=== PATIENT | female | born 1965 | race Caucasian/White ===

== ENCOUNTER → 2017-11-24 | Outpatient (CLI) | payer BC ==
[~2017-11-24] MED LIST: HYDACE5 PO
[2017-11-24 14:29] LABS: Adenovirus F 40/41 Not Detected (NOT DETECT); Astrovirus Not Detected (NOT DETECT); Campylobacter Sp Not Detected (NOT DETECT); Cryptosporidium Not Detected (NOT DETECT); Cyclospora Cayetanensis Not Detected (NOT DETECT); E. Coli O157 Not Detected (NOT DETECT); Entamoeba Histolytica Not Detected (NOT DETECT); Enteroaggregative E. coli-EAEC Not Detected (NOT DETECT); Enteropathogenic E. coli-EPEC Not Detected (NOT DETECT); Enterotoxigenic E. coli-ETEC Not Detected (NOT DETECT); Giardia Lamblia Not Detected (NOT DETECT); Norovirus GI/GII Not Detected (NOT DETECT); Plesiomonas Shigelloides Not Detected (NOT DETECT); Rotavirus A Not Detected (NOT DETECT); Salmonella Sp Not Detected (NOT DETECT); Sapovirus Not Detected (NOT DETECT); Shiga Toxin-prod E. coli-STEC Not Detected (NOT DETECT); Shigella/Enteroin E. coli-EIEC Not Detected (NOT DETECT); Vibrio Cholerae Not Detected (NOT DETECT); Vibrio Sp Not Detected (NOT DETECT); Yersinia Enterocolitica Not Detected (NOT DETECT)
== END ==
LOC: LAB 14:27
PROVIDERS: Nurse Practitioner Family
DX: R19.7 Diarrhea, unspecified (principal)
CPT/HCPCS: 87507

== ENCOUNTER → 2017-12-21 | Outpatient (CLI) | payer BC | END | disposition home or self-care (01) | LOC: LAB 05:45 | DX: R19.7 Diarrhea, unspecified (principal) | CPT/HCPCS: 87493 ==

== ENCOUNTER → 2018-10-29 | Outpatient (CLI) | payer BC ==
[2018-10-29 12:17] LABS: Adenovirus F 40/41 Not Detected (NOT DETECT); Astrovirus Not Detected (NOT DETECT); Campylobacter Sp Not Detected (NOT DETECT); Cryptosporidium Not Detected (NOT DETECT); Cyclospora Cayetanensis Not Detected (NOT DETECT); E. Coli O157 Not Detected (NOT DETECT); Entamoeba Histolytica Not Detected (NOT DETECT); Enteroaggregative E. coli-EAEC Not Detected (NOT DETECT); Enteropathogenic E. coli-EPEC Not Detected (NOT DETECT); Enterotoxigenic E. coli-ETEC Not Detected (NOT DETECT); Giardia Lamblia Not Detected (NOT DETECT); Norovirus GI/GII Not Detected (NOT DETECT); Plesiomonas Shigelloides Not Detected (NOT DETECT); Rotavirus A Not Detected (NOT DETECT); Salmonella Sp Not Detected (NOT DETECT); Sapovirus Not Detected (NOT DETECT); Shiga Toxin-prod E. coli-STEC Not Detected (NOT DETECT); Shigella/Enteroin E. coli-EIEC Not Detected (NOT DETECT); Vibrio Cholerae Not Detected (NOT DETECT); Vibrio Sp Not Detected (NOT DETECT); Yersinia Enterocolitica Not Detected (NOT DETECT)
== END | disposition home or self-care (01) ==
LOC: LAB 07:10 → LAB SHORT 07:10
PROVIDERS: Nurse Practitioner Family
DX: R19.7 Diarrhea, unspecified (principal)
CPT/HCPCS: 87507

== ENCOUNTER → 2018-12-27 | Outpatient (CLI) | payer BC ==
[2018-12-29 15:07] LABS: HPV 16 Negative (Negative); HPV 18 Negative (Negative); HPV OTHER HR TYPES Negative (Negative)
== END | disposition home or self-care (01) ==
LOC: LAB 19:55 → LAB SHORT 19:55
PROVIDERS: Obstetrics & Gynecology
DX: Z01.419 Encounter for gynecological examination (general) (routine) without abnormal findings (principal)
CPT/HCPCS: 87624; G0123

== ENCOUNTER 2024-10-27 10:45 | Day surgery (SDC) | payer OTHER ==
[~2024-10-27] VITALS: Ht 167.6 cm; Wt 59.7 kg
[~2024-10-27 10:45] MED LIST changes: +EPINEPhrine HCl 1 MG/ML 1ML Amp ONE; +Lactated Ringer's 1,000 ML IV ONE; +Lidocaine HCl 2% 10 ML SDA ONE; +Ropivacaine 0.5% HCL/PF 5 MG/ML 30ML Vial ONE
[2024-10-27] MEDS ORDERED: TRI-LO-SPRINTE1 EACH PO (11:10)
[2024-10-27] MEDS ORDERED: Lactated Ringer's 1,000 ML IV ONE (12:01)
[2024-10-27] MEDS ORDERED: Midazolam HCl 1MG / ML 2ML Vial ONE (12:38)
[2024-10-27] MEDS ORDERED: FentaNYL Citrate 50 MCG/ML 2 ML Injection ONE (12:38)
[2024-10-27] MEDS ORDERED: propofoL 20 ML IV ONE (12:38)
[2024-10-27] MEDS ORDERED: Dexamethasone Sod Phos 10 MG/ML 1ML VIAL ONE (12:42)
[2024-10-27] MEDS ORDERED: Ondansetron HCl 2 MG / ML 2ML Vial ONE (12:42)
[2024-10-27] MEDS ORDERED: Ketorolac Tromethamine 30mg Vial ONE (12:43)
[2024-10-27] MEDS ORDERED: CeFAZolin Sodium 1000 mg Vial ONE (12:44)
--- NOTE | 2024-10-27 12:52 | NUR ---
10/27/24 125Allegra Weaver 30ML OF ROPIVACAINE 0.5% MIXED AND VERIFIED WITH 0.15ML OF EPI (1MG/ML) TO MAKE ROPIVACAINE 0.5% WITH EPI 1:200,000 FOR INJECTION AT THE OPSITE BY DR BRAY.
[2024-10-27 13:55] VITALS: BP 115/74
== END 2024-10-27 14:27 | disposition home or self-care (01) ==
LOC: ORSCSDS 10:45
PROVIDERS: Podiatrist Foot & Ankle Surgery
PROC: 0SGM04Z Fusion of Right Metatarsal-Phalangeal Joint with Internal Fixation Device, Open Approach (ICD-10-PCS; principal; 2024-10-27 12:00)
PROC: 0QSQ04Z Reposition Right Toe Phalanx with Internal Fixation Device, Open Approach (ICD-10-PCS; principal; 2024-10-27 12:00)
PROC: 0QSN04Z Reposition Right Metatarsal with Internal Fixation Device, Open Approach (ICD-10-PCS; principal; 2024-10-27 12:00)
DX: M20.11 Hallux valgus (acquired), right foot (principal)
CPT/HCPCS: C1713; C1769; J0171; J0690; J1100; J1885; J2003; J2250; J2405; J2704; J2795; J3010; J7120

== ENCOUNTER 2025-07-13 11:36 | Day surgery (SDC) | payer OTHER ==
[~2025-07-13] VITALS: Ht 167.6 cm; Wt 62.2 kg
[~2025-07-13 11:36] MED LIST changes: +ASCORBIC ACID500 MG PO; +CREATINE100 GM MC; -EPINEPhrine HCl 1 MG/ML 1ML Amp ONE; +LUTEIN-ZEAXANT1 EAC3 PO; -Lactated Ringer's 1,000 ML IV ONE; +MAG GLYCINATE100 MG PO; +MAGNESIUM OXID500 MG PO; -Ropivacaine 0.5% HCL/PF 5 MG/ML 30ML Vial ONE; +TRI-LO-SPRINTE1 EACH PO; +TURMERIC750 MG PO
[2025-07-13] MEDS ORDERED: CeFAZolin Sodium 2,000 MG VIAL ONE (11:49)
[2025-07-13] MEDS ORDERED: VITAMIN D5000 UNIT PO (11:56)
[2025-07-13] MEDS ORDERED: FentaNYL Citrate 50 MCG/ML 2 ML Injection ONE (12:12)
[2025-07-13] MEDS ORDERED: Midazolam HCl 1MG / ML 2ML Vial ONE (12:12)
[2025-07-13 12:41] VITALS: BP 111/75
--- NOTE | 2025-07-13 13:04 | NUR ---
07/13/25 1304 Sadie Leonard ASSUMED CARE FOR PATIENT
[2025-07-13] MEDS ORDERED: HYDROcodone 5-APAP 325 TAB ONE (13:08)
== END 2025-07-13 13:36 | disposition home or self-care (01) ==
LOC: ORSCSDS 11:36
PROVIDERS: Podiatrist Foot & Ankle Surgery
PROC: 0QP104Z Removal of Internal Fixation Device from Sacrum, Open Approach (ICD-10-PCS; principal; 2025-07-13 13:00)
DX: M20.11 Hallux valgus (acquired), right foot (principal); Z96.9 Presence of functional implant, unspecified; T84.84XA Pain due to internal orthopedic prosthetic devices, implants and grafts, initial encounter
CPT/HCPCS: A6253; A9270; J0690; J2003; J2250; J2704; J3010